=== PATIENT | male | born 2005 | race Caucasian/White ===

== ENCOUNTER 2024-01-25 17:50 | Emergency (ER) | payer BC, SELFPAY ==
[2024-01-25 17:58] VITALS: BP 118/80; PULSE 126; RESP 24; TEMP 36.6; O2SAT 97; BMI 30.8
--- NOTE | 2024-01-25 18:11 | CRLHL7_ITS ---
For Patients: As a result of the Century Cures Act, medical imaging exams and procedure reports are released immediately into your electronic medical record. You may view this report before your referring provider. If you have questions, please contact your health care provider. INDICATION: Shortness of breath, pneumonia. TECHNIQUE: Chest 2 views. COMPARISON: January 14, 2024. FINDINGS: Lungs: Normal lung volume. Middle lobe airspace disease concerning for pneumonia. The tracheobronchial tree and hilar structures are unremarkable. Pleura: No pleural effusion or pneumothorax. Heart and Mediastinum: Normal heart size. The great vessels of the thorax are unremarkable. Bones: No acute displaced osseous process. IMPRESSION: Middle lobe airspace disease concerning for pneumonia. Dictated by Chino Jaime MD @ 01/25/2024 6:32:13 PM (Electronically Signed)
--- NOTE | 2024-01-25 18:14 | ED_ITS ---
HPI - General Adult General Chief complaint: Cough Stated complaint: Pneumonia, short of breath Time Seen by Provider: 01/25/24 18:06 Source: patient Mode of arrival: ambulatory History of Present Illness HPI narrative: 18-year-old male presents the emergency department for evaluation of persistent cough. He was diagnosed with pneumonia 11 days ago, was treated with a short course of doxycycline and prednisone. Urgent care notes reviewed. Chest x-ray did confirm a right middle lobe pneumonia. He reports that his symptoms have not improved. He is not running fevers. He is feeling very short of breath. Does not have access to an albuterol inhaler. Was not prescribed any type of asthma treatment. It does not sound like he was wheezing just had rhonchi at that visit. No prior known history of asthma or reactive airway disease but tells me that he did have pneumonia at age 1. No long-term chronic lung disease or immunocompromise status. Reports that he was fully vaccinated as a child and has no history of pertussis. His to roommates had URIs prior to patient becoming ill, they recovered with no difficulty. Patient has been finished with his antibiotics for about 5 days now. No cardiac symptoms, no GI changes. No other systemic symptoms noted. States his past medical history is only notable for ADHD. His only home medication is Adderall. No known drug allergies. Nonsmoker. ROS notable for the respiratory symptoms as above only, otherwise denies times 12 systems. Related Data Home Medications ?Medication ?Instructions ?Recorded ?Confirmed dextroamphetamine sulfate 10 mg 10 mg PO QDAY 01/14/24 01/14/24 capsule,extended release Previous Rx's ?Medication ?Instructions ?Recorded albuterol sulfate 90 mcg/actuation 2 puff inhalation Q2H PRN 01/25/24 aerosol inhaler shortness of breath or wheezing #8.5 grams azithromycin 500 mg tablet 500 mg PO DAILY 7 days #7 tabs 01/25/24 cefdinir 300 mg capsule 300 mg PO BID #20 caps 01/25/24 inhalational spacing device #1 ea 01/25/24 (BreatheRite MDI Spacer) prednisone 20 mg tablet 20 mg PO DAILY #3 tabs 01/25/24 Allergies Allergy/AdvReac Type Severity Reaction Status Date / Time No Known Drug Allergies Allergy Verified 01/14/24 10:26 PFSH PFSH Social History Smoking Status: Never smoker Non-prescribed substance use: denies use Exam Const: Vital Signs, click to edit/add: Vital Signs - 24 hr 01/25/24 17:58 Temperature 97.9 F Pulse Rate [Pulse Oximeter] 126 H Respiratory Rate 24 Blood Pressure [Ri ght Upper Arm] 118/80 Pulse Oximetry 97 Oxygen Delivery Me thod Room Air Documenting provider has reviewed patient's vital signs: yes General appearance: well kempt Other: Mild respiratory distress. Poor air movement noted. Good historian. HENMT: Common normals: normocephalic Head and scalp: normocephalic Face and sinus: normal facial exam Mouth: oral and palatal mucosa normal Throat: posterior oropharynx normal Other: Mild clear mucus rhinorrhea only Eye: Common normals: conjunctivae normal General eye: normal appearance of both eyes Conjunctiva: conjunctiva(e) normal Neck & C-Spine: Common normals: full ROM and no lymphadenopathy Resp: Other: Poor air movement but only mildly increased work of breathing. Prolonged expiration but no obvious crackles. Cardio: Common normals: regular rate, regular rhythm, S1 normal heart sound, S2 normal heart sound and no murmurs Rate: regular rate Rhythm: regular rhythm Heart sounds: S1 normal and S2 normal Extremity: Common normals: normal to inspection and no pedal edema Psych: Common normals: mental status grossly normal, thought process normal, cooperative, affect normal and speech normal Appearance: well kempt Speech: normal speech Thought process: normal thought process Insight: insight good Judgement: judgment good Skin: Common normals: no rashes or lesions noted General skin exam: no rashes or lesions noted Course Course ED Course: 18-year-old male presenting with shortness of breath, tachycardia, no hypoxia but with very poor air movement suspicious for reactive airway disease. Will obtain chest x-ray, administer DuoNeb. 40 mg of prednisone. Typical labs to look for CBC, procalcitonin, CRP and basic metabolic panel. Swabs are for pertusses, flu, COVID and RSV. Await findings and clinical response Reevaluation(s) Time of Reevaluation #1: 19:17 Reevaluation #1: Counseled patient on chest x-ray and lab findings. Still has evidence of a pretty dense right middle lobe pneumonia with leukocytosis, left shift and other factors concerning for persistent pneumonia. He responded really well to the DuoNeb and feels much better already. Repeat lung exam shows much better air movement. Counseled patient on my thoughts. We are seeing some oddly resistant pneumonia is in teens and young adults. They seem to be responding better to macrolides even though them pneumonias do appear lobar. Because his quite dense and he failed therapy on doxycycline, I do recommend dual therapy. Will treat with a single dose of IV Rocephin and 500 mg of azithromycin then transition on to 10 days of cefdinir +7 days of azithromycin. Three days of prednisone. Counseled on albuterol and spacer, prescription given for this. 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 I do want him to have this overnight. He will start antibiotics tomorrow evening with the prednisone. Then he will transition onto the cefdinir b.i.d., this was discussed. He is asking about medical leave for the rest of the term, I am not sure if this is fully necessary but we did discuss how he is likely to have reactive airway disease symptoms for the next several weeks, even a couple of months. I think he could medically go back to class and a couple of days but I will encourage him to follow up with someone from [facility] regarding medical leave. If he is not markedly improved in 4 days, he should be re-evaluated. Consider CT scan of the chest if not improving. Vital Signs Vital signs: Initial Vital Signs Temperature 97.9 F 01/25/24 17:58 Temperature Source Temporal Artery Scan 01/25/24 17:58 Pulse Rate 126 H 01/25/24 17:58 Respiratory Rate 24 01/25/24 17:58 Blood Pressure 118/80 01/25/24 17:58 Blood Pressure Mean 92 01/25/24 17:58 Blood Pressure Position Sitting 01/25/24 17:58 Pulse Oximetry 97 01/25/24 17:58 Oxygen Delivery Method Room Air 01/25/24 17:58 Vital Signs Temperature 97.9 F 01/25/24 17:58 Pulse Rate 126 H 01/25/24 17:58 Respiratory Rate 24 01/25/24 17:58 Blood Pressure 118/80 01/25/24 17:58 Pulse Oximetry 97 01/25/24 17:58 Oxygen Delivery Method Room Air 01/25/24 17:58 Temperature 97.9 F 01/25/24 17:58 Pulse Rate 126 H 01/25/24 17:58 Respiratory Rate 24 01/25/24 17:58 Blood Pressure 118/80 01/25/24 17:58 Pulse Oximetry 97 01/25/24 17:58 Oxygen Delivery Method Room Air 01/25/24 17:58 Medications Administered Medications: Discontinued Medications Generic Name Dose Route Start Last Admin Trade Name Freq PRN Reason Stop Dose Admin Albuterol/Ipratropium 1 neb 01/25/24 18:07 01/25/24 18:44 Iprat-Albut 0.5-2.5 Mg/3 Ml Neb IH 01/25/24 18:08 1 neb ONCE ONE Administration Azithromycin 500 mg 01/25/24 18:50 01/25/24 19:08 Azithromycin 250 Mg Tablet PO 01/25/24 18:51 500 mg ONCE ONE Administration Ceftriaxone Sodium 1 gm/ 100 mls @ 200 mls/hr 01/25/24 18:50 01/25/24 19:27 Sodium Chloride IVPB 01/25/24 18:51 Infused ONCE ONE Infusion Prednisone 40 mg 01/25/24 18:12 01/25/24 18:44 Prednisone 10 Mg Tablet PO 01/25/24 18:13 40 mg ONCE ONE Administration Medical Decision Making Lab Data Lab results reviewed: Yes I reviewed the patient's lab results Lab results narrative: Leukocytosis with left shift. Labs: Lab Results 01/25/24 01/25/24 Range/Units 18:20 18:34 WBC 15.22 H (4.50-11.00) K/uL RBC 6.29 H (4.30-5.90) m/uL Hgb 16.9 (13.5-17.5) gm/dL Hct 49.8 (37.0-53.0) % MCV 79 L (80-100) fL MCH 27 (26-34) pg MCHC 34 (32-36) gm/dL RDW Coeff of Jarrett 12.5 (11.5-15.5) % Plt Count 444 H (140-440) K/uL Neut % (Auto) 81.8 H (42.0-72.0) % Lymph % (Auto) 11.4 L (20-44) % [place] % (Auto) 6.1 (0.0-11.0) % Eos % (Auto) 0.2 (0.0-7.0) % Baso % (Auto) 0.2 (0.0-3.0) % Neut # (Auto) 12.40 H (1.7-7.0) K/uL Lymph # (Auto) 1.70 (0.90-2.90) K/uL [place] # (Auto) 0.90 (0.00-0.90) K/UL Eos # (Auto) 0.00 (0.00-0.50) K/uL Baso # (Auto) 0.00 (0.00-0.30) K/uL Abs Immat Gran (auto) 0.00 (0.00-0.30) K/uL Imm/Tot Granulo (auto) 0.3 % Sodium 139 (135-149) mmol/L Potassium 4.0 (3.6-5.1) mmol/L Chloride 106 (96-114) mmol/L Carbon Dioxide 18 L (20-32) mmol/L Anion Gap 15 (7-15) mEq/L BUN 12 (5-24) mg/dL Creatinine 1.0 (0.5-1.5) mg/dL Estimated Creat Clear 121.67 Estimated GFR 111 ml/min Glucose 106 (60-115) mg/dL Calcium 9.9 (8.4-10.6) mg/dL C-Reactive Protein 0.6 (0.5-1.0) mg/dL Procalcitonin 0.04 (<0.50) ng/mL SARS-CoV-2 (PCR) Negative SARS-CoV-2 (Negative) Influenza Type A (PCR) Negative PCR FLU A (Negative) Influenza Type B (PCR) Negative PCR FLU B (Negative) RSV (PCR) Negative PCR RSV (Negative) Imaging Data Chest x-ray: My impression: Dense right middle lobe pneumonia Radiologist's impression: IMPRESSION: Middle lobe airspace disease concerning for pneumonia. Dictated by Chino Jaime MD @ 01/25/2024 6:32:13 PM Discharge Plan Discharge Clinical Impression: Right middle lobe pneumonia Patient Disposition: Home w/ Parent or Adult Condition: Improved Instructions: Community Acquired Pneumonia (DC), How to Use a Metered-Dose Inhaler and a Spacer (DC) Additional Instructions: As we discussed, your pneumonia is not improved. Actually it is a bit impressive on chest x-ray. Your labs also reflect that the infection has not healed sufficiently. The initial antibiotic chosen is typically a very good choice but we are seeing a run of resistant pneumonias in teens and young adults in the area. They are tending to respond to antibiotics targeted towards different types of bacteria, specifically mycoplasma. Because years does look a little more significant, I would recommend dual treatment. I have given you an initial dose of IV Rocephin, which is an antibiotic that is very good for lobar meaning focal pneumonia. I have also started you on azithromycin which is better for atypical pneumonias. You will transition onto oral antibiotics which are similar. The azithromycin you will continue taking once nightly, try to aim for 7 p.m. tomorrow. The cefdinir, you will take 2 times daily. Your next dose is at 7:00 p.m. tomorrow but then you will start taking it in the mornings also on Monday. The IV dose does last 24 hours but want to transition onto the oral, he will need to take it every 12 hours. You may take the medications at the same time if they are due to gather. I would like for you to take the prednisone once daily in the evening with your azithromycin for the next 3 days. The azithromycin stays in your system longer, therefore you only have 7 days of that antibiotic while you will have 10 days of the cefdinir. Your symptoms should be improving quite a bit within the next 3-4 days. If you are not noticing any improvement in 5 days, please seek re-evaluation. As we discussed, your lungs will be vulnerable for the next couple of months. You will be prone to wheezing and worsening infections from viruses than someone with normal lungs. Use the albuterol inhaler with the spacer up to every 2 hours when you have that chest tightness and or shortness of breath feeling. You will likely need your inhaler for several weeks, even after you are finished with the antibiotic. Cold symptoms, frigid air, exercise may trigger wheezing or shortness of breath for several weeks as discussed. 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 He would need to [facility] or a primary care doctor for clearance. I would recommend that you try to go back to classes in 48 hours. Activity Level: Activity as Tolerated Discharge Diet: Regular Prescriptions: New prednisone 20 mg tablet 20 mg PO DAILY Qty: 3 0RF cefdinir 300 mg capsule 300 mg PO BID Qty: 20 0RF azithromycin 500 mg tablet 500 mg PO DAILY 7 Days Qty: 7 0RF albuterol sulfate 90 mcg/actuation HFA aerosol inhaler 2 puff inhalation Q2H PRN (Reason: shortness of breath or wheezing) Qty: 8.5 1RF (DME) BreatheRite MDI Spacer Spacer See Rx Instructions .Route Qty: 1 1RF Rx Instructions: As directed No Action dextroamphetamine sulfate 10 mg capsule, extended release 10 mg PO QDAY Follow Up/Referrals: Provider,Not a Local [Primary Care Provider] - Stand Alone Forms: [employer] Info Instructions
[2024-01-25 18:40] LABS: Basophils Percent Auto 0.2 % (0.0-3.0); Eosinophils Percent Auto 0.2 % (0.0-7.0); Hematocrit 49.8 % (37.0-53.0); Hemoglobin* 16.9 gm/dL (13.5-17.5); Immature Granulocytes Pct Auto 0.3 %; Lymphocytes Percent Auto 11.4 % (20-44); Mean Corpuscular HGB Conc 34 gm/dL (32-36); Mean Corpuscular Hemoglobin 27 pg (26-34); Mean Corpuscular Volume 79 fL (80-100); Monocytes Percent Auto 6.1 % (0.0-11.0); Neutrophils Percent Auto 81.8 % (42.0-72.0); Platelet Count* 444 K/uL (140-440); RDW Coefficient of Variation % 12.5 % (11.5-15.5); Red Blood Count 6.29 m/uL (4.30-5.90); White Blood Count* 15.22 K/uL (4.50-11.00)
[2024-01-25 18:42] LABS: Slide Review Reflex No
[2024-01-25] MEDS: IPRAT-ALBUT 0.5-2.5 MG/3 ML NEB 1 NEB IH (18:44)
[2024-01-25] MEDS: predniSONE 10 MG TABLET 40 MG PO (18:44)
[2024-01-25 18:53] LABS: Chloride* 106 mmol/L (96-114)
[2024-01-25 18:54] LABS: Sodium* 139 mmol/L (135-149)
[2024-01-25 18:56] LABS: Est. Creatinine Clearance* 121.67; Estimated Glomerular Filt Rate 111 ml/min
[2024-01-25 18:57] LABS: Anion Gap 15 mEq/L (7-15); Blood Urea Nitrogen* 12 mg/dL (5-24); Calcium* 9.9 mg/dL (8.4-10.6); Carbon Dioxide* 18 mmol/L (20-32); Glucose* 106 mg/dL (60-115)
[2024-01-25 19:00] LABS: C Reactive Protein* 0.6 mg/dL (0.5-1.0)
[2024-01-25] MEDS: AZITHROMYCIN 250 MG TABLET 500 MG PO (19:08)
[2024-01-25] MEDS: cefTRIAXone 1 GM in 0.9 % SODIUM CHLORIDE Mini-bag 100 ML IVPB (19:12)
[2024-01-25 19:13] LABS: Procalcitonin* 0.04 ng/mL (<0.50)
[2024-01-25 19:17] LABS: PCR FLU A Negative PCR FLU A (Negative); PCR FLU B Negative PCR FLU B (Negative); PCR RSV Negative PCR RSV (Negative); SARS PCR* Negative SARS-CoV-2 (Negative)
[2024-01-30 02:42] LABS: B. pertussis/parapertus Source Not Provided; Bordetella parapertussis PCR Not Detected; Bordetella pertussis by PCR Not Detected
== END 2024-01-25 19:28 | disposition home or self-care (01) ==
PROVIDERS: Emergency Provider Family Medicine
DX: J18.9 Pneumonia, unspecified organism (principal)
CPT/HCPCS: 36415; 71046; 80048; 84145; 85025; 86140; 87631; 96365; 99284; A9270; J0696; J7512